=== PATIENT | female | born 1980 | race African-American/Black ===

== ENCOUNTER → 2024-08-19 07:00 | Outpatient (CLI) | payer OTHER, SELFPAY ==
--- NOTE | 2024-08-19 07:01 | DI.US.S_ITS ---
PROCEDURE: US OB <= 14 WEEKS FETUS INDICATIONS: viability, IVF OUTSIDE/PRIOR DATING DATA: By IVF, working RASHAD is 03/22/2025 Ultrasound RASHAD is 03/19/2025 today TECHNIQUE: Real-time scanning was performed of the fetus and maternal pelvic organs, with image documentation. Endovaginal scanning was also performed to better visualize the fetus and maternal ovaries. COMPARISON: None. FINDINGS: pole is visualized with yolk sac, crown-rump length measures 2.9 cm, 9 weeks and 5 days. heart motion at a rate of 171 beats per minute. IMPRESSION: Living intrauterine gestation at an ultrasound age of 9 weeks and 5 days, ultrasound RASHAD is consistent with working RASHAD by IVF. Dictated by: Yong Moreland M.D. on 08/19/2024 at 14:39 Approved by: Yong Moreland M.D. on 08/19/2024 at 14:40
== END ==
PROVIDERS: Referring Provider Family Medicine; Visit Provider Family Medicine
DX: O09.811 Supervision of pregnancy resulting from assisted reproductive technology, first trimester (principal); Z3A.09 9 weeks gestation of pregnancy
CPT/HCPCS: 76801